=== PATIENT | male | born 1960 | race Caucasian/White ===

== ENCOUNTER 2020-06-26 01:27 | Emergency (ER) | payer MEDICAID, OTHER ==
[~2020-06-26] VITALS: Ht 185.4 cm; Wt 108.9 kg
--- NOTE | 2020-06-26 01:27 | NUR ---
right ankle conrado wrapped at this time, crutches provided with verbal instructions on proper usage, no signs of acute distress noted
[2020-06-26] MEDS ORDERED: TADA5TAB2 PO (01:37)
--- NOTE | 2020-06-26 01:38 | NUR ---
at bedside for assessment
--- NOTE | 2020-06-26 01:39 | NUR ---
Patient discharged to home in stable condition. Able to ambulate steadily with crutches, no signs of acute distress noted, Written and verbal after care instructions given. Friend drove patient home. Rx given. Patient verbalizes understanding of instructions. Stressed follow up or return to ER for worsening s/s.
[2020-06-26 01:42] VITALS: BP 133/72
== END 2020-06-26 01:40 | disposition home or self-care (01) ==
LOC: ER 01:27
DX: S93.401A Sprain of unspecified ligament of right ankle, initial encounter (principal); W18.39XA Other fall on same level, initial encounter; Y93.89 Activity, other specified; Y92.89 Other specified places as the place of occurrence of the external cause; Y99.8 Other external cause status; M19.90 Unspecified osteoarthritis, unspecified site
CPT/HCPCS: 73610; A4663